=== PATIENT | male | born 1940 | race Caucasian/White ===

== ENCOUNTER 2022-03-21 05:40 | Day surgery (SDC) | payer MEDICARE, OTHER ==
[~2022-03-21] VITALS: Ht 172.7 cm; Wt 71.4 kg
[~2022-03-21 05:40] MED LIST: LISINOPRIL5 MG PO; PLAQUENIL200 MG PO
--- NOTE | 2022-03-21 08:23 | NUR ---
03/21/22 0823 Andree Miller 0816-PATIENT ARRIVED TO PACU ON 6L MASK RR EVEN. PATIENT REACTIVE TO VERBAL STIMULI KEEPS EYES CLOSED DENIES PAIN OR NAUSEA. SB HR UPPER 40'S-50'S DRESSING TO RIGHT FOOT CDI GOOD CAP REFILL AND WARMTH TO TOES DIAMOND PEDAL PULSE DUE TO DRESSING. 0822-DR. ROLDAN AT BEDSIDE TALKING TO PATIENT EYES CLOSED. 6L MASK RR EVEN 100% XRAY CALLED.
--- NOTE | 2022-03-23 15:14 | EKG ---
[facility] [address] [facility] [place] [address] Signed Sinus bradycardia Left axis deviation Abnormal ECG No previous ECGs available Confirmed by Jamie Varela MD () on 03/23/2022 3:14:43 PM Electronically Signed By: JAMIE VARELA MD 03/23/22 1514 PATIENT NAME: ALEX SMYTH Electrocardiogram DATE OF : 44 PHYSICIAN: JAMIE VARELA MD REPORT #: [id number] REPORT IS CONFIDENTIAL AND NOT TO BE RELEASED WITHOUT AUTHORIZATION
--- NOTE | 2022-03-26 14:23 | PATH ---
[facility] [address] [place], [place] [address] Signed SPECIMEN(S): A OSTEOPHYTE RIGHT METATARSAL SPECIMEN SOURCE: A. OSTEOPHYTE RIGHT METATARSAL CLINICAL HISTORY: Right foot tinea unguium, hallux rigidus, osteophyte. FINAL PATHOLOGIC DIAGNOSIS: Osteophyte, right metatarsal: - Fragments of bone and cartilage with degenerative change and benign synovial tissue. TWK:emh:C2NR MICROSCOPIC EXAMINATION: Histologic sections of all submitted blocks are examined by light microscopy. These findings, together with the gross examination, support the pathologic diagnosis. GROSS DESCRIPTION: The specimen, labeled "JH, osteophyte right metatarsal," is received in formalin and consists of several irregular shaped bone tissue fragments that aggregate measure 2.7 x 2.2 x 1.2 cm. Sectioning through the specimen reveal yellow-day trabeculated bone surface. Specimen is left for decalcification in Immunocal prior processing. [employer] Operator sections are submitted in cassette (A1). JS (under the direct supervision of a pathologist) The Gross Description was prepared using a voice recognition system. The report was reviewed for accuracy; however, sound-alike word errors, addition and/or deletions may occur. If there is any question about this report, please contact Client Services. PERFORMING LABORATORY: The technical component was performed by [facility], [address] [place] [id number] (CLIA# [id number]). The professional interpretation was performed by [facility], [facility], [address] [place] [address] (CLIA#: [id number]). Diagnostician: Wiley Portillo MD Pathologist PATIENT NAME: ALEX SMYTH PATHOLOGY DATE OF : 44 REPORT #: [id number] PHYSICIAN: [facility] PCP: NEGRO YOU MD REPORT IS CONFIDENTIAL AND NOT TO BE RELEASED WITHOUT AUTHORIZATION [address] [address] Signed Electronically Signed 03/26/2022 Copies: ~ PATIENT NAME: ALEX SMYTH PATHOLOGY DATE OF : 44 REPORT #: [id number] PHYSICIAN: [facility] PCP: NEGRO YOU MD REPORT IS CONFIDENTIAL AND NOT TO BE RELEASED WITHOUT AUTHORIZATION
--- NOTE | 2022-04-07 09:04 | OR ---
[facility] [address] [place], [place] [address] Signed DATE OF OPERATION: 03/21/2022 SURGEON: Earnest Garcia DPM PREOPERATIVE DIAGNOSES: 1. Osteophyte, right foot. 2. Hallux rigidus, right foot. POSTOPERATIVE DIAGNOSES: 1. Osteophyte, right foot. 2. Hallux rigidus, right foot. WASTE COLLECTOR: Gladis Zamarripa DPM. ANESTHESIA: IV general with local block right foot. HOOP MAKER: Earnest Lynn. SPECIMEN TO PATHOLOGY: Bone of osteophyte excision dorsal right first metatarsal head. PROCEDURE: Excision of osteophyte dorsal right first metatarsal head. PROCEDURE IN DETAIL: The patient was brought to the operating room and placed on the table in the supine position. Anesthesia Department administered IV sedation after which a local block was given to the right foot using a total of 10 mL 1:1 mixture, 2% lidocaine plain and 0.5% ropivacaine plain. The right leg and foot was then prepped and draped in the usual sterile manner, and an Esmarch was used for hemostasis. Attention was initially directed to the dorsal/medial aspect right first metatarsal head where a linear longitudinal incision was made. The incision was initially full-thickness through the dermis, then deepened through subcutaneous tissue using careful dissection and cautery as necessary for hemostasis. Once at the level of deep fascia and joint capsule the incision was deepened to bone, and soft tissues reflected medially and laterally to expose the dorsal first metatarsal head as well as the bony Electronically Signed By: EARNEST GARCIA DPM 04/07/22 0904 PATIENT NAME: ALEX SMYTH OPERATIVE REPORT DATE OF : 44 REPORT #: [id number] PHYSICIAN: EARNEST GARCIA DPM PCP: NO PRIMARY CARE PHYSICIAN REPORT IS CONFIDENTIAL AND NOT TO BE RELEASED WITHOUT AUTHORIZATION [facility] [address] [place], [place] [address] Signed bump to this site. Upon reflecting the soft tissues, the distal aspect of the osteophyte was loose and easily removed. The proximal portion was well attached and this was resected using power instrumentation. The remaining bone to the first metatarsal head was smoothed with use of a rongeur and rasp. The surgical site was then irrigated with copious amounts of normal saline. Then, bone wax applied to the area of raw bone at the site of the osteophyte excision. Intraoperative images then obtained with fluoroscopy to confirm elimination of the osteophyte. The surgical site then closed using 4-0 Vicryl for deep fascia and joint capsule as well as subcutaneous tissue. The skin was then closed using skin alejandra. Dressings applied consisting of Adaptic, Betadine-soaked gauze, dry gauze, Flexicon, and Coban. INTRAOPERATIVE COMPLICATIONS: None. ESTIMATED BLOOD LOSS: Less than 5 mL. The patient tolerated the procedure and the anesthesia well and left the operating room with vital signs stable and vascular status intact to the right foot as evidenced by hyperemia with removal of the Esmarch. Earnest Garcia DPM DFB/MYNORL /[id number] Copies: ~ Electronically Signed By: EARNEST GARCIA DPM 04/07/22 0904 PATIENT NAME: ALEX SMYTH OPERATIVE REPORT DATE OF : 44 REPORT #: [id number] PHYSICIAN: EARNEST GARCIA DPM PCP: NO PRIMARY CARE PHYSICIAN REPORT IS CONFIDENTIAL AND NOT TO BE RELEASED WITHOUT AUTHORIZATION
== END 2022-03-21 09:10 | disposition home or self-care (01) ==
LOC: DS 05:40
PROVIDERS: ATTEND Podiatrist Foot Surgery
PROC: 0QBN0ZZ Excision of Right Metatarsal, Open Approach (ICD-10-PCS; principal; 2022-03-21 07:30)
DX: M25.774 Osteophyte, right foot (principal); M20.21 Hallux rigidus, right foot; B35.1 Tinea unguium
CPT/HCPCS: 73620; 73630; 88304; 88311; 93005; 93010; J0131; J0690; J1100; J2405; J2704; J2795; J7121